=== PATIENT | male | born 1980 | race Caucasian/White ===

== ENCOUNTER 2018-01-15 04:35 | Emergency (ER) | payer OTHER ==
[2018-01-15 04:53] VITALS: BP 146/109; PULSE 74; TEMP 98.4; BMI 25.8
[2018-01-15] MEDS ORDERED: AMOX TR/POT CLAV 500MG/125MG TABLETS (FP) ONE (04:56)
[2018-01-15] MEDS ORDERED: KETOROLAC TROMETHAMINE 60 MG/2 ML VIAL ONE (04:57)
--- NOTE | 2018-01-15 05:02 | PDOC ---
History of Present Illness - General Chief Complaint: Pain, Acute Stated Complaint: PAIN BEHIND RT EAR History Source: Patient Exam Limitations: No Limitations - History of Present Illness Initial Comments: 01/15/18 04:57 This is a 37-year-old comes in complaining of severe right ear pain. Patient denies any fevers or chills. Patient says he has history of chronic cerumen buildup otherwise denies any history of ear pain. Patient has also history of migraine. Patient to 1000 mg of acetaminophen without relief. PAST MEDICAL HISTORY: no significant history PAST SURGICAL HISTORY: no significant history FAMILY HISTORY: no pertinant history SOCIAL HISTORY: Pt lives with family and is employed. MEDICATIONS: reviewed ALLERGIES: As per nursing notes ROS General: No fevers or chills, no weakness, no weight loss HEENT: No change in vision. No sore throat,. No ear pain CardioVascular: No chest pain or shortness of breath Respiratory:No cough, or wheezing. Gastrointestinal: no nausea, vomiting, diarrhea or constipation, No rectal bleeding Genitourinary: No dysuria, hematuria, or frequency Musculoskeletal: . No joint pain or swelling Neurologic: No headache, vertigo, dizziness or loss of consciousness Psychiatric: nor depression Skin: No rashes or easy bruising Endocrine: no increased thirst or abnormal weight change Allergic: no skin or latex allergy All other systems reviewed and normal GENERAL: The patient is awake, alert, and fully oriented, in no acute distress. HEAD: Normal with no signs of trauma. EARS: Right ear external canal is normal without excess cerumen, however the tympanic membrane is dull, injected and poor light reflex. Right tympanic membrane is slightly dull but otherwise normal. EYES: Pupils equal, round and reactive to light, extraocular movements intact, sclera anicteric, conjunctiva clear. EXTREMITIES: Normal range of motion, no edema. NEUROLOGICAL: Normal speech, normal gait. grossly intact PSYCH: Normal mood, normal affect. SKIN: Warm, Dry, normal turgor, no rashes or lesions noted. Assessment and plan: This is a 37-year-old male who comes in complaining of right ear pain. On exam patient does have a right otitis media. Patient given a shot of Toradol for the pain and started on Augmentin. Patient discharged will follow up with his ENT Wednesday. Past History - Past Medical History Allergies/Adverse Reactions: Allergies Allergy/AdvReac Type Severity Reaction Status Date / Time No Known Allergies Allergy Unverified 01/15/18 04:37 Home Medications: Ambulatory Orders Topiramate [Topiramate ER] 150 mg PO PRN PRN 01/15/18 COPD: No Other medical history: MIGRAINES - Suicide/Smoking/Psychosocial Hx Smoking History: Never smoked *Physical Exam - Vital Signs Last Vital Signs Temp Pulse Resp BP Pulse Ox 98.4 F 74 16 146/109 H 100 01/15/18 04:41 01/15/18 04:41 01/15/18 04:41 01/15/18 04:41 01/15/18 04:41 *DC/Admit/Observation/Transfer Diagnosis at time of Disposition: Acute right otitis media - Discharge Dispostion Disposition: HOME Condition at time of disposition: Stable Decision to Admit order: No - Referrals - Patient Instructions Printed Discharge Instructions: Middle Ear Infection Additional Instructions: For the pain take ibuprofen 3 tablets 3 times a day with food don't take on an empty stomach. In addition to that for the infection take Augmentin 1 tablet twice a day, Return to the emergency department immediately with ANY new, persistent or worsening symptoms. Continue any medications as previously prescribed by your physician. You should follow up with your ENT if not improved by Wednesday . Please make sure your doctor reviews the results of your emergency evaluation. Thank you for coming to the Emergency Department today for your care. It was a pleasure to see you today. Please note that your evaluation is INCOMPLETE until you follow-up with your doctor. - Post Discharge Activity
== END 2018-01-15 05:08 | disposition home or self-care (01) ==
LOC: FER 04:35
DX: H66.91 Otitis media, unspecified, right ear (principal)
CPT/HCPCS: 99281-25

== ENCOUNTER 2019-02-26 07:28 | Emergency (ER) | payer OTHER ==
[2019-02-26 07:34] VITALS: PULSE 67; TEMP 97.7; BMI 26.3
--- NOTE | 2019-02-26 07:57 | PDOC ---
History of Present Illness - General Chief Complaint: Migraine Headache Stated Complaint: MIGRIANE Time Seen by Provider: 02/26/19 07:31 History Source: Patient Exam Limitations: No Limitations - History of Present Illness Initial Comments: 02/26/19 07:54 38y M hx of headaches presents with 29 hrs of headache that he describes as a bilateral throbbing headache that has been unremitting. Pain started yesterday morning and woke him up, which is typical for him. Pt endorses some nausea/ vomiting and photophobia with the headache but denies any visual scotoma, double vision, fever/chills, neck pain, back pain, cp, sob, abd pain. Pt feels improved resting in the dark. pt drinks 4-6 caffeinated beverages / day, and states he has maintained that. No improvement with excedrin ROS Constitutional - no reported Fever, Chills, HEENT: no reported vision changes, sore throat Respiratory: no reported cough, sob, hemoptysis Cardiac: no reported chest pain, palpitations, light headedness, leg swelling Abd/GI: +nausea, vomiting, no reported abd pain, blood per rectum, melena, diarrhea : no reported dysuria, frequency, discharge Musculskelatal - no reported back pain, joint swelling skin - no reported bruising, erythema, rash neurological: + headache, Photophobia no reported numbness, focal weakness, tingling, ataxia, hematologic: no reported easy bruising, easy bleeding Exam: GENERAL: The patient is awake, alert, and fully oriented, Nontoxic - in no acute distress. HEAD: Normocephalic, atraumatic. EYES: extraocular movements intact, sclera anicteric, conjunctiva clear. ENT: Normal voice, Moist mucous membranes. NECK: Normal range of motion, supple LUNGS: Breath sounds equal, clear to auscultation bilaterally. No wheezes, no rhonchi, no rales. HEART: Regular rate and rhythm, normal S1 and S2 without murmur, rub or gallop. ABDOMEN: Soft, nontender, No guarding, no rebound. No CVA tenderness EXTREMITIES: Normal range of motion, no edema. NEUROLOGICAL: No facial assymetry, Normal speech, PSYCH: Normal mood, normal affect. SKIN: Warm, Dry, normal turgor, suspect migraine,m neuro intact no signs of SAH or other acute headache will treat with reglan fluids & supportive care will erassess Past History - Past Medical History Allergies/Adverse Reactions: Allergies Allergy/AdvReac Type Severity Reaction Status Date / Time No Known Allergies Allergy Verified 02/26/19 07:29 Home Medications: Ambulatory Orders NK [No Known Home Medication] 02/26/19 COPD: No - Psycho Social/Smoking Cessation Hx Smoking History: Never smoked Hx Alcohol Use: No Drug/Substance Use Hx: No *Physical Exam - Vital Signs Last Vital Signs Temp Pulse Resp BP Pulse Ox 97.7 F 67 18 148/113 H 98 02/26/19 07:28 02/26/19 07:28 02/26/19 07:28 02/26/19 07:28 02/26/19 07:28 ED Treatment Course - LABORATORY CBC & Chemistry Diagram: 02/26/19 08:39 02/26/19 08:39 Medical Decision Making - Medical Decision Making 02/26/19 11:12 The patient is feeling significantly improved with complete resolution of his headache. Will discharge patient to follow-up with his doctor for further evaluation of his migraines Return precautions were discussed I discussed the physical exam findings, ancillary test results and final diagnoses with the patient. I answered all of the patient's questions. The patient was satisfied with the care received and felt comfortable with the discharge plan and treatment plan. The patient will call their primary care physician within 24 hours to arrange follow-up and will return to the Emergency Department with any new, persistent or worsening symptoms. Discharge - Discharge Information Problems reviewed: Yes Clinical Impression/Diagnosis: Migraine Qualifiers: Migraine type: unspecified Status migrainosus presence: without status migrainosus Intractability: not intractable Qualified Code(s): G43.909 - Migraine, unspecified, not intractable, without status migrainosus Condition: Improved Disposition: HOME - Admission No - Follow up/Referral Referrals: Phong Xiong MD [Staff Physician] - - Patient Discharge Instructions Patient Printed Discharge Instructions: DI for Migraine Additional Instructions: Return to the emergency department immediately with ANY new, persistent or worsening symptoms including worsening headache, vision changes, numbness/ tingling/weakness, persistent nausea and vomiting or any other concerns. Make sure you are getting adaqute sleep and hydration. Take your excedrin and/or motrin for your headache as directed by packaging instructions. You MUST call and follow up with your doctor in 3-4 days for further evaluation of your symptoms. Your emergency department visit is not complete without a followup with your doctor for reevaluation. Results were discussed with you. Please make sure your doctor reviews the results of your emergency evaluation. - Post Discharge Activity
[2019-02-26] MEDS ORDERED: METOCLOPRAMIDE HCL INJECTION 10 MG/2 ML VIAL IVPUSH ONE (08:05)
[2019-02-26] MEDS ORDERED: SODIUM CHLORIDE 1,000 ML IV ONE (08:05)
[2019-02-26 08:52] LABS: BASO % 1.1 % (0-2.0); EOS % 4.8 % (0-4.5); HEMATOCRIT 42.5 % (35.4-49); HEMOGLOBIN 14.3 GM/dl (11.7-16.9); LYMPH % 29.3 % (8-40); MCH 31.2 pg (25.7-33.7); MCHC 33.6 g/dl (32.0-35.9); MEAN CELL VOLUME 92.9 fl (80-96); MEAN PLT VOLUME 10.4 fl (7.5-11.1); MONO % 8.2 % (3.8-10.2); NEUT % 56.6 % (42.8-82.8); PLATELET COUNT 233 K/MM3 (134-434); RBC 4.58 M/mm3 (4.00-5.60); RDW 11.5 % (11.9-15.9); WHITE BLOOD COUNT 6.5 K/mm3 (4.0-10.8)
[2019-02-26 09:24] LABS: ALBUMIN 4.4 g/dl (3.4-5.0); BILIRUBIN,TOTAL 1.2 mg/dl (0.2-1); TOT PROT 7.4 g/dl (6.4-8.2)
[2019-02-26 09:26] VITALS: BP 126/86
[2019-02-26] MEDS ORDERED: KETOROLAC TROMETHAMINE 30 MG/1 ML VIAL IVPUSH ONE (10:06)
[2019-02-26 11:06] LABS: CALCIUM 9.2 mg/dL (8.5-10.1); POTASSIUM 3.7 mmol/L (3.5-5.1)
== END 2019-02-26 11:22 | disposition home or self-care (01) ==
LOC: FER 07:28
PROC: 3E0333Z Introduction of Anti-inflammatory into Peripheral Vein, Percutaneous Approach (ICD-10-PCS; principal; 2019-02-26)
PROC: 3E0337Z Introduction of Electrolytic and Water Balance Substance into Peripheral Vein, Percutaneous Approach (ICD-10-PCS; 2019-02-26)
PROC: 3E033GC Introduction of Other Therapeutic Substance into Peripheral Vein, Percutaneous Approach (ICD-10-PCS; 2019-02-26)
DX: G43.909 Migraine, unspecified, not intractable, without status migrainosus (principal)
CPT/HCPCS: 36415; 80053; 85025; 99283-25; J7030